=== PATIENT | male | born 1970 | race Two or more races ===

== ENCOUNTER 2019-06-03 21:08 | Emergency (ER) | payer MEDICAID ==
[~2019-06-03] VITALS: Ht 175.3 cm; Wt 79.0 kg
[2019-06-03] MEDS ORDERED: VISCOUS LIDOCAINE 2% 15 ML UDC PO ONE (22:15)
[2019-06-03] MEDS ORDERED: ASPIRIN 81MG TABLET PO ONE (22:15)
[2019-06-03] MEDS ORDERED: MAGNESIUM/ALUMINUM HYDROXIDE/SIMETHICONE 30ML UDC PO ONE (22:15)
[2019-06-03] MEDS ORDERED: SODIUM CHLORIDE 0.9% 1,000 ML IV ONE (22:30)
[2019-06-03 22:32] LABS: HEMATOCRIT. 41.7 % (42.0-52.0); HEMOGLOBIN. 14.6 g/dL (14.0-18.0); MEAN CORPUSCULAR HEMOGLOBIN 30.1 pg (28.0-32.0); MEAN CORPUSCULAR VOLUME 86.3 fL (80.0-94.0); MEAN PLATELET VOLUME 8.5 fl (7.4-10.4); PLATELET 160 x1000/uL (130-400); RED BLOOD CELL COUNT 4.83 mill/uL (4.7-6.1); RED CELL DISTRIBUTION WIDTH 12.6 % (11.6-14.6)
[2019-06-03 22:36] LABS: CHLORIDE 105 mEq/L (98-107)
[2019-06-03 22:49] LABS: PLATELET ESTIMATE NORMAL
[2019-06-04 05:44] VITALS: BP 98/60
== END 2019-06-04 05:46 | disposition home or self-care (01) ==
LOC: ER 21:08 → EDBD 21:08 → ER 06-04 05:46
DX: R07.89 Other chest pain (principal); F15.10 Other stimulant abuse, uncomplicated; F17.210 Nicotine dependence, cigarettes, uncomplicated; Z88.0 Allergy status to penicillin
CPT/HCPCS: 36415; 71045; 80053; 83690; 83880; 84484; 85025; 93005; 96360; 99285; J7030; Z7610